=== PATIENT | male | born 1990 | race Caucasian/White ===

== ENCOUNTER 2019-01-18 16:27 | Emergency (ER) | payer OTHER ==
[~2019-01-18] VITALS: Ht 175.3 cm; Wt 90.7 kg
[2019-01-18 16:33] VITALS: Ht 175.3 cm; Wt 90.7 kg
[2019-01-18 19:17] VITALS: BP 124/74
== END 2019-01-18 19:18 | disposition home or self-care (01) ==
LOC: ED 16:27
DX: S61.214A Laceration without foreign body of right ring finger without damage to nail, initial encounter (principal); S61.216A Laceration without foreign body of right little finger without damage to nail, initial encounter; W26.8XXA Contact with other sharp object(s), not elsewhere classified, initial encounter; Y93.89 Activity, other specified; Y92.89 Other specified places as the place of occurrence of the external cause; Y99.8 Other external cause status
CPT/HCPCS: 90715; J2001

== ENCOUNTER 2019-01-20 16:04 | Emergency (ER) | payer OTHER ==
[~2019-01-20] VITALS: Ht 175.3 cm; Wt 82.6 kg
[2019-01-20 16:09] VITALS: Ht 175.3 cm; Wt 82.6 kg
[2019-01-20 17:20] VITALS: BP 146/80
== END 2019-01-20 17:20 | disposition home or self-care (01) ==
LOC: ED 16:04
DX: S61.214D Laceration without foreign body of right ring finger without damage to nail, subsequent encounter (principal); S61.212D Laceration without foreign body of right middle finger without damage to nail, subsequent encounter; X58.XXXD Exposure to other specified factors, subsequent encounter

== ENCOUNTER 2019-01-28 08:21 | Emergency (ER) | payer OTHER ==
[~2019-01-28] VITALS: Ht 175.3 cm; Wt 83.5 kg
[2019-01-28 08:24] VITALS: Ht 175.3 cm; Wt 83.5 kg
[2019-01-28 09:02] VITALS: BP 129/71
== END 2019-01-28 09:02 | disposition home or self-care (01) ==
LOC: ED 08:21
DX: Z48.02 Encounter for removal of sutures (principal)